=== PATIENT | male | born 1990 | race Caucasian/White ===

== ENCOUNTER 2018-03-12 15:37 | Emergency (ER) | payer MEDICARE, OTHER ==
[2018-03-12] MEDS ORDERED: Diatrizoate Meglumine/Diatri 30 mL Sol ONE ×2 (16:32→16:49)
[2018-03-12] MEDS ORDERED: Triple Antibiotic 0.94 gm Pkt TP ONE (16:52)
--- NOTE | 2018-03-12 18:39 | ED Physician Chart ---
ED Chief Complaint/HPI - Patient Information Date Seen:: 03/12/18 Time Seen:: 16:12 Chief Complaint:: g tube dislodged History of Present Illness:: g tube dislodged. hinojosa placed by SNF. Allergies:: Allergies Allergy/AdvReac Type Severity Reaction Status Date / Time No Known Allergies Allergy Verified 03/12/18 16:12 Vitals:: Vital Signs - 8 hr 03/12/18 16:12 Temp 96.1 F HR 54 RR 16 BP 138/87 O2 Sat % 99 Historian:: Medical Records Review:: Nurse's Note Reviewed, Transfer documents Reviewed, Patient unable to respond ED Review of Systems - Review of Systems General/Constitutional: No fever, No chills, No weight loss, No weakness, No diaphoresis, No edema, No loss of appetite Skin: No skin lesions, No rash, No bruising Head: No headache, No light-headedness Eyes: No loss of vision, No pain, No diplopia ENT: No earache, No nasal drainage, No sore throat, No tinnitus Neck: No neck pain, No swelling, No thyromegaly, No stiffness, No mass noted Cardio Vascular: No chest pain, No palpitations, No PND, No orthopnea, No edema Pulmonary: No SOB, No cough, No sputum, No wheezing GI: No nausea, No vomiting, No diarrhea, No pain, No melena, No hematochezia, No constipation, No hematemesis, Other (gtube dislodged) G/U: No dysuria, No frequency, No hematuria Musculoskeletal: No bone or joint pain, No back pain, No muscle pain Endocrine: No polyuria, No polydipsia Psychiatric: No prior psych history, No depression, No anxiety, No suicidal ideation Hematopoietic: No bruising, No lymphadenopathy Allergic/Immuno: No urticaria, No angioedema Neurological: No syncope, No focal symptoms, No weakness, No paresthesia, No headache, No seizure, No dizziness, No confusion, No vertigo ED Past Medical History - Past Medical History Obtainable: No Past Medical History: Other (c. diff colitis; chronic respiratory failure; hypotension; dyspahgia, unspecified; lack of coordination; intracranial injury; encephalopathy; quadriplegia, unspecified) Surgical History: PEG/GTube, other (right craniotomy) Family Medical History - Family Member Mother History Unknown: Yes ED Physical Exam - Physical Examination General/Constitutional: Awake, No distress Other Gen/Cons comments:: chronically ill appearing. Other Head comments:: R craniotomy indentation Eyes: Lids, conjuctiva normal, PERRL Skin: Well hydrated ENMT: External ears, nose nl Neck: Nontender, No nuchal rigidity Other Neck comments:: chronic trach in place. Respiratory: Nl effort/Exclusion, Clear to Auscultation Cardio Vascular: RRR, No murmur, gallop, rubs GI: No tenderness/rebounding/guarding, No organomegaly, No hernia, Normal BS's, Nondistended Other GI comments:: g tube stoma with a hinojosa in place (placed by SNF) Other Extremities comments:: contracted extremities. Other Neuro/Psych comments:: not responsive (chronic problem) contracted extremities. ED Assessment - Procedures Procedures:: 20 [place] g tube placed without any difficulty. Betadine prep. ky jelly. Gastrograffin study revealed placement of g tube in the stomach (confirmation with Dr. Ace, radiologist) ED Septic Shock - . Is Septic Shock (SBP<90, OR Lactate>4 mmol\L) present?: No - <6hrs of presentation: Vital Signs: Vital Signs - 8 hr 03/12/18 16:12 Temp 96.1 F HR 54 RR 16 BP 138/87 O2 Sat % 99 ED Reassessment (Disposition) - Reassessment Reassessment Condition:: Improved - Diagnosis Diagnosis:: G tube dislodgement, status post replacement. - Aftercare/Follow up Instructions Aftercare/Follow-Up Instructions:: Refer to Discharge Instructions - Patient Disposition Discharge/Transfer:: [facility] - SNF Condition at Disposition:: Stable, Improved
--- NOTE | 2018-03-13 08:34 | Diagnostic Imaging Report ---
Upper GI with Gastrografin HISTORY: G-tube replacement COMPARISON: None FINDINGS: Museum Tour Guide view demonstrates percutaneous feeding tube. Generalized Gas-filled loops of bowel and moderate stool noted. There may be oral contrast within the colon. The following images demonstrate contrast opacification of the stomach and small bowel loops. IMPRESSION: Intraluminal confirmation of patient's percutaneous gastric feeding tube. Possible oral contrast in the colon. Please correlate with clinical history and recent exams.
== END 2018-03-12 18:47 ==
LOC: ER 15:37
DX: K94.23 Gastrostomy malfunction (principal); Z93.1 Gastrostomy status
CPT/HCPCS: A4217; Z7502; Z7610